=== PATIENT | male | born 1975 | race Caucasian/White ===

== ENCOUNTER 2019-01-12 08:23 | Emergency (ER) | payer OTHER ==
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
[2019-01-12] MEDS: Silver Sulfadiazine 1% 400gm* 1 APPLIC JAR TOPICAL ONE (09:12)
[2019-01-12 09:56] VITALS: BP 124/87
== END 2019-01-12 09:15 | disposition home or self-care (01) ==
LOC: ED 08:23
DX: T23.202A Burn of second degree of left hand, unspecified site, initial encounter (principal); T23.201A Burn of second degree of right hand, unspecified site, initial encounter; X11.8XXA Contact with other hot tap-water, initial encounter; Y92.89 Other specified places as the place of occurrence of the external cause; Y99.0 Civilian activity done for income or pay
CPT/HCPCS: 99282; A9270-GY